=== PATIENT | female | born 1980 | race African-American/Black ===

== ENCOUNTER 2018-10-23 19:17 | Emergency (ER) | payer MEDICARE, OTHER ==
[~2018-10-23] VITALS: Ht 165.1 cm; Wt 50.8 kg
[~2018-10-23 19:17] MED LIST: LEVO125T PO
[2018-10-23] MEDS ORDERED: DIPHTH,PERTUSS(ACELL),TET TOX 0.5 ML DISP.SYRIN. VAX IM ONE (19:30)
[2018-10-23] MEDS ORDERED: HYDROcodone/APAP 5/325MG 1 TAB TABLET PO ONE (19:45)
[2018-10-23] MEDS ORDERED: MORPHINE SULFATE 4 MG/ML VIAL. IM ONE (21:30)
[2018-10-23] MEDS ORDERED: CEPH500T PO (22:15)
[2018-10-23] MEDS ORDERED: HYDR-3164 PO (22:15)
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
[2018-10-23 22:39] VITALS: BP 156/114
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
== END 2018-10-23 22:45 | disposition home or self-care (01) ==
LOC: ER 19:17 → EEVIPCON 19:17 → ER 22:45
DX: S61.442A Puncture wound with foreign body of left hand, initial encounter (principal); E03.9 Hypothyroidism, unspecified; Z88.6 Allergy status to analgesic agent; Z88.2 Allergy status to sulfonamides; Z88.5 Allergy status to narcotic agent; Z88.8 Allergy status to other drugs, medicaments and biological substances; Y24.8XXA Other firearm discharge, undetermined intent, initial encounter; Y93.89 Activity, other specified; Y92.488 Other paved roadways as the place of occurrence of the external cause; Y99.8 Other external cause status
CPT/HCPCS: 73130; 90471; 90715; 96372; 99284; J2270

== ENCOUNTER 2018-10-27 16:02 | Emergency (ER) | payer MEDICARE, OTHER ==
[~2018-10-27] VITALS: Ht 165.1 cm; Wt 50.8 kg
[~2018-10-27 16:02] MED LIST changes: +CEPH500T PO; +HYDR-3164 PO
[2018-10-27] MEDS ORDERED: HYDR-3164 PO (16:28)
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
[2018-10-27] MEDS ORDERED: HYDROcodone/APAP 5/325MG 1 TAB TABLET PO ONE (16:30)
== END 2018-10-27 16:30 | disposition home or self-care (01) ==
LOC: ER 16:02
DX: M79.642 Pain in left hand (principal); E03.9 Hypothyroidism, unspecified; M32.9 Systemic lupus erythematosus, unspecified; Z88.2 Allergy status to sulfonamides; Z88.5 Allergy status to narcotic agent; Z88.6 Allergy status to analgesic agent; Z88.8 Allergy status to other drugs, medicaments and biological substances
CPT/HCPCS: 99283

== ENCOUNTER 2019-08-15 20:33 | Emergency (ER) | payer MEDICARE ==
[~2019-08-15] VITALS: Ht 165.1 cm; Wt 57.7 kg
[2019-08-15 21:02] LABS: U PREG PATIENT POSITIVE (NEG)
[2019-08-15 21:40] LABS: BILIRUBIN,URINE NEGATIVE (NEG); CLARITY,URINE CLEAR; COLOR,URINE YELLOW; NITRITE,URINE POSITIVE (NEG); PH,URINE 6.5; PROTEIN,URINE NEGATIVE (NEG-TRACE)
[2019-08-15 21:45] LABS: BACTERIA,URINE MANY /HPF (0-FEW); SQUAMOUS EPITHELIAL CELL,UR MOD /LPF
[2019-08-15 21:46] LABS: RBC,URINE 20-40 /HPF (0-2)
[2019-08-15] MEDS ORDERED: ONDANSETRON PF 4 MG/2 ML VIAL. IV ONE (22:00)
[2019-08-15] MEDS ORDERED: IV NORMAL SALINE 1000ML BAG 1,000 ML IV ONE (22:00)
[2019-08-15 22:02] LABS: BASO # 0.1 x10^3/uL (0.0-0.2); BASO % 1 % (0-3); EOS # 0.1 x10^3/uL (0.0-0.7); EOS % 1 % (0-3); HEMOGLOBIN 10.1 g/dL (12.0-15.5); LYMPH # 2.8 x10^3/uL (1.0-4.8); LYMPH % 22 % (24-48); MEAN CORPUSCULAR HEMOGLOBIN 32 pg (25-35); MEAN CORPUSCULAR HGB CONC 35 g/dL (31-37); MEAN CORPUSCULAR VOLUME 92 fL (79-100); MONO # 0.6 x10^3/uL (0.0-1.1); MONO % 5 % (0-9); NEUT % 71 % (31-73); PLATELET COUNT 247 x10^3/uL (140-400); RED BLOOD COUNT 3.16 x10^6/uL (3.50-5.40); RED CELL DISTRIBUTION WIDTH 14.6 % (11.5-14.5); WHITE BLOOD COUNT 12.6 x10^3/uL (4.0-11.0)
[2019-08-15 22:06] LABS: CALCIUM 9.2 mg/dL (8.5-10.1); CREATININE 1.1 mg/dL (0.6-1.0); GFR 67.6; POTASSIUM 3.2 mmol/L (3.5-5.1)
[2019-08-15] MEDS ORDERED: BUTORPHANOL 2 MG/ML VIAL. ONE (22:06)
[2019-08-15 22:14] LABS: ALBUMIN 3.9 g/dL (3.4-5.0); ALBUMIN/GLOBULIN RATIO 1.3 (1.0-1.7); TOTAL BILIRUBIN 0.5 mg/dL (0.2-1.0)
[2019-08-15] MEDS ORDERED: BUTORPHANOL 2 MG/ML VIAL. IV ONE (22:30)
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
--- NOTE | 2019-08-15 23:37 | RAD ---
Exam: Ultrasound OB less than 14 weeks Indication: Indication Technique: Real-time grayscale and color Doppler images of the pelvis were obtained by the department drop press hand. Comparisons: None FINDINGS: Uterus measures 6.9 x 12 x 6.1 cm. Endometrium is approximately 2.7 cm in thickness and heterogenous. Right ovary measures 2.0 x 1.1 x 1.0 cm. Left ovary measures 2.5 x 1.9 x 1.4 cm. Vascular flow identified within the ovaries. IMPRESSION: No , gestational sac. Sac is identified. Differential considerations include an early IUP, failed IUP or nonvisualized ectopic. Recommend correlation with serial beta hCG measurements and short-term follow-up ultrasound. Electronically signed by: Shahla Harris MD (08/15/2019 11:33 PM) [facility]
[2019-08-15] MEDS ORDERED: CEPH-264 PO (23:51)
[2019-08-16] MEDS ORDERED: POTASSIUM CHLORIDE 20 MEQ TABLET.ER. PO ONE (00:15)
[2019-08-16 00:30] VITALS: BP 127/87
[2019-08-16] MEDS ORDERED: fentaNYL PF VIAL 100 MCG/2 ML VIAL IV ONE (00:30)
== END 2019-08-16 00:43 | disposition home or self-care (01) ==
LOC: ER 20:33
DX: O20.0 Threatened abortion (principal); O23.41 Unspecified infection of urinary tract in pregnancy, first trimester; O99.281 Endocrine, nutritional and metabolic diseases complicating pregnancy, first trimester; E03.9 Hypothyroidism, unspecified; Z3A.00 Weeks of gestation of pregnancy not specified; Z88.2 Allergy status to sulfonamides; Z88.5 Allergy status to narcotic agent; Z88.6 Allergy status to analgesic agent; Z88.8 Allergy status to other drugs, medicaments and biological substances
CPT/HCPCS: 36415; 76801; 80053; 81001; 81025; 84702; 85025; 86900; 86901; 87086; 96374; 96375; 99285; J2405; J3010; J7030; 87186